=== PATIENT | female | born 1925 | race Caucasian/White ===

== ENCOUNTER → 2017-02-24 12:43 | Emergency (ER) | payer MEDICARE, OTHER ==
[2017-02-24 14:16] VITALS: BP 134/62
--- NOTE | 2017-02-24 16:00 | ED ---
Christopher Gibson Julia, scribed for Roni Francis MD on 02/24/17 at 1431 . Headache - HPI Summary HPI Summary: This patient is a 89 year old F BIBA to [facility] accompanied by with a chief complaint of headache occurring this morning with spontaneously resolution. Patient denies difficulty walking, talking, or changes in balance. - History Of Current Complaint Chief Complaint: EDDizziness Stated Complaint: HEADACHE Time Seen by Provider: 02/24/17 12:59 Hx Obtained From: Patient Onset/Duration: Resolved - Allergies/Home Medications Allergies/Adverse Reactions: Allergies Allergy/AdvReac Type Severity Reaction Status Date / Time Sulfa Antibiotics Allergy Intermediate Rash Verified 04/26/16 09:05 PMH/Surg Hx/FS Hx/Imm Hx Endocrine/Hematology History: Denies: Hx Diabetes Cardiovascular History: Denies: Hx Hypertension, Hx Pacemaker/ICD GI History: Denies: Other GI Disorders Musculoskeletal History: Reports: Hx Osteoporosis Sensory History: Reports: Hx Contacts or Glasses - GLASSES, Hx Hearing Aid Opthamlomology History: Reports: Hx Contacts or Glasses - GLASSES Neurological History: Denies: Other Neuro Impairments/Disorders Psychiatric History: Denies: Hx Panic Disorder - Surgical History Surgery Procedure, Year, and Place: [place] [place] [place] RIGHT LEG FRACTURE-METAL PLATE [id number]. RIGHT WRIST CARPAL TUNNEL 12/01 Hx Anesthesia Reactions: No Infectious Disease History: No Infectious Disease History: Denies: History Other Infectious Disease, Traveled Outside the [place] in Last 30 Days - Social History Alcohol Use: Rare Alcohol Amount: ONE DRINK A MONTH Hx Substance Use: No Substance Use Type: Reports: None Hx Tobacco Use: No Smoking Status (MU): Never Smoked Tobacco Review of Systems Negative: Fever Neurological: Negative - difficulty walking, talking, or balancing Positive: Headache All Other Systems Reviewed And Are Negative: Yes Physical Exam - Summary Physical Exam Summary: Appearance: The patient is well-nourished in no acute distress and in no acute pain. Skin: The skin is warm and dry and skin color reflects adequate perfusion. HEENT: The head is normocephalic and atraumatic. The pupils are equal and reactive. The conjunctivae are clear and without drainage. Nares are patent and without drainage. Mouth reveals moist mucous membranes and the throat is without erythema and exudate. The external ears are intact. The ear canals are patent and without drainage. The tympanic membranes are intact. Neck: the neck is supple with full range of motion and non-tender. There are no carotid bruits. There is no neck vein distension. Respiratory: Chest is non-tender. Lungs are clear to auscultation and breath sounds are symmetrical and equal. Cardiovascular: Heart is regular rate and rhythm. There is no murmur or rub auscultated. There is no peripheral edema and pulses are symmetrical and equal. Abdomen: The abdomen is soft and non-tender. There are normal bowel sounds heard in all four quadrants and there is no organomegaly palpated. Musculoskeletal: There is no back tenderness noted. Extremities are non-tender with full range of motion. There is good capillary refill. There is no peripheral edema or calf tenderness elicited. Neurological: Patient is alert and oriented to person, place and time. The patient has symmetrical motor strength in all four extremities. Cranial nerves are grossly intact. Deep tendon reflexes are symmetrical and equal in all four extremities. Psychiatric: The patient has an appropriate affect and does not exhibit any anxiety or depression. Triage Information Reviewed: Yes Vital Signs On Initial Exam: Initial Vitals Temp Pulse Resp BP Pulse Ox 98.1 F 68 18 156/103 95 02/24/17 13:05 02/24/17 13:05 02/24/17 13:05 02/24/17 13:05 02/24/17 13:05 Vital Signs Reviewed: Yes - [place] Coma Scale Coma Scale Total: 15 Diagnostics - Vital Signs Vital Signs Temp Pulse Resp BP Pulse Ox 02/24/17 13:05 98.1 F 68 18 156/103 95 - Laboratory Lab Statement: Any lab studies that have been ordered have been reviewed, and results considered in the medical decision making process. Headache Course/Dx - Course Course Of Treatment: Ms. Rendon C/O'd a ARTHUR at home and in the EMS but denied it or any other unusual symptoms on my evaluation. Neuro was grossly intact without focality and I D/C'd her back to home. - Diagnoses Provider Diagnoses: Headache Discharge - Discharge Plan Condition: Stable Disposition: HOME Patient Education Materials: General Headache (ED) Referrals: Celso Scales MD [Primary Care Provider] - The documentation as recorded by the Christopher ramirez Julia accurately reflects the service I personally performed and the decisions made by , Roni Francis MD.
== END | disposition home or self-care (01) ==
LOC: ED 12:43
DX: R51 Headache (principal); Z88.2 Allergy status to sulfonamides
CPT/HCPCS: 99282

== ENCOUNTER 2017-02-27 11:39 | Emergency (ER) | payer MEDICARE, OTHER ==
[2017-02-27 12:44] LABS: ABS Basophils 0 10^3/ul (0-0.2); ABS Eosinophils 0 10^3/ul (0-0.6); ABS Lymphocytes 1.2 10^3/ul (1.0-4.8); ABS Monocytes 0.5 10^3/ul (0-0.8); ABS Neutrophils 4.5 10^3/ul (1.5-7.7); ABS Nucleated RBC 0 10^3/ul; Eosinophil % 0.7 % (0-6); Hematocrit 38 % (35-47); Hemoglobin 12.6 g/dl (12.0-16.0); Lymphocyte % 19.2 % (25-47); Mean Corpuscular HGB Conc 34 g/dl (31-36); Mean Corpuscular Hemoglobin 31 pg (27-31); Mean Corpuscular Volume 93 fL (80-97); Mean Platelet Volume 7 um3 (7.4-10.4); Nucleated Red Blood Cells % 0; Platelet Count 237 10^3/ul (150-450); Red Blood Count 4.06 10^6/ul (4.0-5.4); Red Cell Distribution Width 13 % (10.5-15); White Blood Count 6.2 10^3/ul (3.5-10.8)
[2017-02-27 12:53] LABS: INR 0.89 (0.77-1.02)
--- NOTE | 2017-02-27 12:56 | RAD ---
INDICATION: Dizziness COMPARISON: None. TECHNIQUE: Contiguous axial sections of the brain were obtained from the skull base to the vertex without contrast. FINDINGS: The ventricles, cisterns and sulci mild symmetrical involutional changes. There is mild periventricular and subcortical white matter hypoattenuation most consistent with mild chronic microvascular disease. At the right frontal lobe there is a 4 mm hypoattenuating focus in the cortex just lateral to the falx cerebra I which could represent an age indeterminant focal infarction. Otherwise the trimble-white matter differentiation is adequately maintained and there is no sulcal effacement. No significant focal abnormality or mass effect is present. There is no evidence for intracranial hemorrhage. No significant focal osseous abnormality is present. The visualized portion of the paranasal sinuses appear clear. The mastoid air cells are well aerated bilaterally. IMPRESSION: CT findings are compatible with chronic involutional changes, microvascular disease as well as an age indeterminant focal infarction involving the right frontal cortex. If the patient is exhibiting focal neurologic defects further characterization can be made with MRI of the brain.
[2017-02-27 12:59] LABS: EGFR Non-African American 45.8 (>60)
--- NOTE | 2017-02-27 13:05 | RAD ---
INDICATION: Chest pain. COMPARISON: There are no prior studies available for comparison. TECHNIQUE: A portable view of the chest was obtained. FINDINGS: The heart is mildly enlarged. The lungs are underinflated and clear. IMPRESSION: MILD CARDIOMEGALY.
[2017-02-27 15:05] LABS: Urine Appearance Cloudy; Urine Blood Negative (Negative); Urine Color Amber; Urine Ketones Negative (Negative); Urine Protein 1+(30 mg/dL) (Negative); Urine Specific Gravity 1.021 (1.010-1.030); Urine Urobilinogen Negative (Negative)
--- NOTE | 2017-02-27 16:30 | ED ---
Alber Gibson Angela, scribed for Himanshu Moran MD on 02/27/17 at 1220 . Dizziness - HPI Summary HPI Summary: This pt is a 89 y/o female, accompanied by her , presenting to [facility] [place] c/o dizziness and chest pain today. Pt reports that her dizziness began first this morning. She states her dizziness has now resolved. She is unable to remember the time of onset. Per , pt's chest pain only lasted about 30 minutes, and currently denies any pain. She describes it as non-radiating and mid sternal. Pt denies nausea, vomiting, diaphoresis. She denies pain or discomfort with deep breaths. Pt states she was in the ED 3 days ago for the same symptoms. She denies any PMHx. Denies any history of blood clots. Pt states she takes a memory pill. Additionally notes her memory "is not too good." - History Of Current Complaint Chief Complaint: EDDizziness Stated Complaint: LIGHT HEADED Hx Obtained From: Patient Onset/Duration: Resolved Timing: Minutes Character: Dizzy Aggravating Factor(s): Nothing Alleviating Factor(s): Nothing Associated Signs And Symptoms: Negative: Nausea, Vomiting, Diarrhea, Diaphoresis - Allergies/Home Medications Allergies/Adverse Reactions: Allergies Allergy/AdvReac Type Severity Reaction Status Date / Time Sulfa Antibiotics Allergy Intermediate Rash Verified 04/26/16 09:05 Home Medications: Home Medications Donepezil TAB* [Aricept 5 MG TAB*] 10 mg PO DAILY 02/27/17 [History Confirmed ] Memantine XR CAP* [Namenda XR CAP*] 28 mg PO DAILY 02/27/17 [History Confirmed 02/27/17] PMH/Surg Hx/FS Hx/Imm Hx Endocrine/Hematology History: Denies: Hx Diabetes Cardiovascular History: Denies: Hx Hypertension, Hx Pacemaker/ICD GI History: Denies: Other GI Disorders Musculoskeletal History: Reports: Hx Osteoporosis Sensory History: Reports: Hx Contacts or Glasses - GLASSES, Hx Hearing Aid Opthamlomology History: Reports: Hx Contacts or Glasses - GLASSES Neurological History: Denies: Other Neuro Impairments/Disorders Psychiatric History: Denies: Hx Panic Disorder - Surgical History Surgery Procedure, Year, and Place: HERNIA REPAIR[place] [place] TUBAL LIGATION[place] [place]. RIGHT LEG FRACTURE-METAL PLATE [id number]. RIGHT WRIST CARPAL TUNNEL 6/ 10/14 Hx Anesthesia Reactions: No - Immunization History Date of Influenza Vaccine: 10/2016 Immunizations Up to Date: Yes Infectious Disease History: Yes Infectious Disease History: Denies: History Other Infectious Disease, Traveled Outside the [place] in Last 30 Days - Family History Known Family History: Negative: Cardiac Disease, Diabetes, Other - [place] - Social History Alcohol Use: Rare Alcohol Amount: ONE DRINK A MONTH Hx Substance Use: No Substance Use Type: Reports: None Hx Tobacco Use: No Smoking Status (MU): Never Smoked Tobacco Review of Systems Negative: Fever, Chills, Skin Diaphoresis Positive: Chest Pain - now resolved Negative: Vomiting, Diarrhea, Nausea Neurological: Other - dizziness, now resolved. All Other Systems Reviewed And Are Negative: Yes Physical Exam - Summary Physical Exam Summary: Appearance: Well-appearing, Well-nourished Skin: Warm Eyes: Normal ENT: Normal Neck: Supple, nontender Respiratory: Clear to auscultation bilaterally. Cardiovascular: 2/6 systolic murmur. Abdomen: Soft, nontender Bowel: Present Musculoskeletal: Normal, Strength/ROM Intact Neurological: Normal, alert and appropriate. Pt is answering questions appropriately. Normal strength and sensation of UE and LE bilaterally. Normal distal pulses in radial and pedal areas bilaterally. Psychiatric: Normal Triage Information Reviewed: Yes Vital Signs On Initial Exam: Initial Vitals Temp Pulse Resp BP Pulse Ox 97.8 F 61 15 122/69 97 02/27/17 12:03 02/27/17 12:03 02/27/17 12:03 02/27/17 12:03 02/27/17 12:03 Vital Signs Reviewed: Yes - [place] Coma Scale Coma Scale Total: 15 Diagnostics - Vital Signs Vital Signs Temp Pulse Resp BP Pulse Ox 02/27/17 12:03 97.8 F 61 15 122/69 97 - Laboratory Lab Results: Lab Results 02/27/17 02/27/17 02/27/17 Range/Units 12:35 12:35 12:35 WBC 6.2 (3.5-10.8) 10^3/ul RBC 4.06 (4.0-5.4) 10^6/ul Hgb 12.6 (12.0-16.0) g/dl Hct 38 (35-47) % MCV 93 (80-97) fL MCH 31 (27-31) pg MCHC 34 (31-36) g/dl RDW 13 (10.5-15) % Plt Count 237 (150-450) 10^3/ul MPV 7 L (7.4-10.4) um3 Neut % (Auto) 72.1 (38-83) % Lymph % (Auto) 19.2 L (25-47) % Cecil % (Auto) 7.4 (1-9) % Eos % (Auto) 0.7 (0-6) % Baso % (Auto) 0.6 (0-2) % Absolute Neuts (auto) 4.5 (1.5-7.7) 10^3/ul Absolute Lymphs (auto) 1.2 (1.0-4.8) 10^3/ul Absolute Monos (auto) 0.5 (0-0.8) 10^3/ul Absolute Eos (auto) 0 (0-0.6) 10^3/ul Absolute Basos (auto) 0 (0-0.2) 10^3/ul Absolute Nucleated RBC 0 10^3/ul Nucleated RBC % 0 INR (Anticoag Therapy) 0.89 (0.77-1.02) APTT 29.4 (26.0-36.3) seconds Sodium 138 (133-145) mmol/L Potassium 4.0 (3.5-5.0) mmol/L Chloride 103 (101-111) mmol/L Carbon Dioxide 27 (22-32) mmol/L Anion Gap 8 (2-11) mmol/L BUN 20 (6-24) mg/dL Creatinine 1.12 H (0.51-0.95) mg/dL Est GFR ( Amer) 58.9 (>60) Est GFR (Non-Af Amer) 45.8 (>60) BUN/Creatinine Ratio 17.9 (8-20) Glucose 114 H (70-100) mg/dL Calcium 9.5 (8.6-10.3) mg/dL Magnesium 2.5 (1.9-2.7) mg/dL Total Bilirubin 0.40 (0.2-1.0) mg/dL AST 19 (13-39) U/L ALT 17 (7-52) U/L Alkaline Phosphatase 48 (34-104) U/L Troponin I 0.01 (<0.04) ng/mL Total Protein 6.9 (6.4-8.9) g/dL Albumin 3.7 (3.2-5.2) g/dL Globulin 3.2 (2-4) g/dL Albumin/Globulin Ratio 1.2 (1-3) TSH 0.61 (0.34-5.60) mcIU/mL Urine Color Urine Appearance Urine pH (5-9) Ur Specific [place] (1.010-1.030) Urine Protein (Negative) Urine Ketones (Negative) Urine Blood (Negative) Urine Nitrate (Negative) Urine Bilirubin (Negative) Urine Urobilinogen (Negative) Ur Leukocyte Esterase (Negative) Urine WBC (Auto) (Absent) Urine RBC (Auto) (Absent) Ur Squamous Epith Cells (Absent) Urine Bacteria (Absent) Urine Glucose (Negative) Urine Ascorbic Acid (Negative) 02/27/17 02/27/17 Range/Units 14:57 15:19 WBC (3.5-10.8) 10^3/ul RBC (4.0-5.4) 10^6/ul Hgb (12.0-16.0) g/dl Hct (35-47) % MCV (80-97) fL MCH (27-31) pg MCHC (31-36) g/dl RDW (10.5-15) % Plt Count (150-450) 10^3/ul MPV (7.4-10.4) um3 Neut % (Auto) (38-83) % Lymph % (Auto) (25-47) % Cecil % (Auto) (1-9) % Eos % (Auto) (0-6) % Baso % (Auto) (0-2) % Absolute Neuts (auto) (1.5-7.7) 10^3/ul Absolute Lymphs (auto) (1.0-4.8) 10^3/ul Absolute Monos (auto) (0-0.8) 10^3/ul Absolute Eos (auto) (0-0.6) 10^3/ul Absolute Basos (auto) (0-0.2) 10^3/ul Absolute Nucleated RBC 10^3/ul Nucleated RBC % INR (Anticoag Therapy) (0.77-1.02) APTT (26.0-36.3) seconds Sodium (133-145) mmol/L Potassium (3.5-5.0) mmol/L Chloride (101-111) mmol/L Carbon Dioxide (22-32) mmol/L Anion Gap (2-11) mmol/L BUN (6-24) mg/dL Creatinine (0.51-0.95) mg/dL Est GFR ( Amer) (>60) Est GFR (Non-Af Amer) (>60) BUN/Creatinine Ratio (8-20) Glucose (70-100) mg/dL Calcium (8.6-10.3) mg/dL Magnesium (1.9-2.7) mg/dL Total Bilirubin (0.2-1.0) mg/dL AST (13-39) U/L ALT (7-52) U/L Alkaline Phosphatase (34-104) U/L Troponin I 0.01 (<0.04) ng/mL Total Protein (6.4-8.9) g/dL Albumin (3.2-5.2) g/dL Globulin (2-4) g/dL Albumin/Globulin Ratio (1-3) TSH (0.34-5.60) mcIU/mL Urine Color [place] Urine Appearance Cloudy Urine pH 5.0 (5-9) Ur Specific [place] 1.021 (1.010-1.030) Urine Protein 1+(30 mg/dl) H (Negative) Urine Ketones Negative (Negative) Urine Blood Negative (Negative) Urine Nitrate Negative (Negative) Urine Bilirubin Negative (Negative) Urine Urobilinogen Negative (Negative) Ur Leukocyte Esterase Trace H (Negative) Urine WBC (Auto) Trace(0-5/hpf) (Absent) Urine RBC (Auto) Trace(0-2/hpf) (Absent) Ur Squamous Epith Cells Present H (Absent) Urine Bacteria Absent (Absent) Urine Glucose Negative (Negative) Urine Ascorbic Acid * H (Negative) Result Diagrams: 02/27/17 12:35 02/27/17 12:35 Lab Statement: Any lab studies that have been ordered have been reviewed, and results considered in the medical decision making process. - Radiology chest XR Xray Interpretation: Positive (See Comments) - IMPRESSION: Mild cardiomegaly. Dr. Moran has reviewed this radiology report. Radiology Interpretation Completed By: Radiologist - CT Brain CT CT Interpretation: No Acute Changes - IMPRESSION: CT findings are compatible with chronic involutional changes, microvascular disease as well as an age indeterminant focal infarction involving the right frontal cortex. If the patient is exhibiting focal neurologic defets further characterization can be made with MRI of the brain. Dr. Moran has reviewed this radiology report. CT Interpretation Completed By: Radiologist - EKG 12:23 Cardiac Rate: Bradycardia EKG Rhythm: Sinus Bradycardia - at 57 bpm EKG Interpretation: Left ventricular hypertrophy. Dizzy Course/Dx - Course Assessment/Plan: no acute abd on imaging, labs WNL, pt ambulating normally, chest pain free, instructedt o fu wtih pmd. pt and family agrees to and understands dc isntrucitns. - Diagnoses Provider Diagnoses: Chest pain Discharge - Discharge Plan Condition: Improved Disposition: HOME Patient Education Materials: Chest Pain (ED) Referrals: Celso Scales MD [Primary Care Provider] - Navdeep Sellesr MD [Medical Doctor] - Additional Instructions: PLEASE MAKE AN APPOINTMENT FIRST THING IN THE MORNING TO BE SEEN BY YOUR HOT DIE PICKER WITHIN 1 WEEK PLEASE RETURN IMMEDIATELY TO THE ER IF YOU HAVE ANY WORSENING OR CONCERNING SYMPTOMS PLEASE MAKE AN APPOINTMENT TO BE SEEN BY YOUR PRIMARY CARE DOCTOR WITHIN 1 WEEK The documentation as recorded by the Alber ramirez Angela accurately reflects the service I personally performed and the decisions made by me, Himanshu Moran MD.
[2017-02-28 14:17] VITALS: BP 112/68
== END 2017-02-28 14:11 | disposition home or self-care (01) ==
LOC: ED 11:39
DX: R07.9 Chest pain, unspecified (principal); R42 Dizziness and giddiness
CPT/HCPCS: 36415; 70450; 71045; 80053; 81003; 81015; 83735; 84443; 84484; 85025; 85610; 85730; 87086; 93005; 99282

== ENCOUNTER → 2017-03-03 12:00 | Emergency (ER) | payer MEDICARE, OTHER ==
[~2017-03-03 12:00] MED LIST: Acetaminophen TAB* 325 MG PO ONE
--- OUTSIDE RECORDS SUMMARY | 2017-03-03 12:11 | XMS REPORT ---
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 Celso Scales III, MD Primary Care Physician Unavailable Payers Type Date Identification Numbers Payment Provider Subscriber Medicare Primary Effective: Policy Number: Medicare Chanell Rendon 1990 [id number] PayID: [id number] [address] [place] [address] [employer] Policy Number: [id number] [employer] Chanell Rendon PayID: [id number] [address] [place] [address] Advance Directives Type Date Description Status Comment Other Directive 11/19/2016 Health Care Proxy Current and Verified Other Directive 04/23/2016 Health Care Proxy Current and Verified Problems Date Description Provider Status Onset: 12/18/2010 Benign essential hypertension Celso Scales M.D. Active Onset: 12/18/2010 Pure hypercholesterolemia Celso Scales M.D. Active Onset: 12/18/2010 Osteochondropathy Celso Scales M.D. Active Onset: 04/20/2016 Disorder of bone Celso Scales M.D. Active Social History Type Date Description Comments Cigarette Use Never Smoked Cigarettes ETOH Use 09/04/2012 Denies alcohol use Smoking Patient has never smoked Exercise Type/Frequency Exercises regularly Allergies, Adverse Reactions, Alerts Date Description Reaction Status Severity Comments 10/31/2009 Sulfa Antibiotics itchy rash active 09/26/2006 NKDA inactive Medications Medication Date Status Form Strength Qnty SIG Indications Ordering Provider Donepezil 06/29/ Active Tablets 10mg 90tab 1 by mouth G31.84 Celso TELLEZ 2017 Dispers s every day Chucky Scales Multi-Vitami 09/26/ Active Tablets 1 PO qd Navdeep Sellers M.D. Calcium / Active Liquids 1 oz a day Loyda 0000 III, Celso Weaver MD Vitamins / Active 1 oz a day Unknown 0000 Vitamin D / Active Capsules 1000Unit 1 po qd Unknown High Potency 0000 Lutein / Active Capsules 20mg po qd Unknown 0000 Namenda XR 01/16/ Hx Caps ER 28mg 90cap 1 by mouth G31.84 Celso Weaver 2017 - 24HR s every day Loyda, 02/28/ M.D. 2018 Namenda XR 12/21/ Hx Caps ER 7&14&a 1caps 1 tab daily G31.84 Celso Weaver Titration 2017 - 24HR mp;21& per Loyda, Pack 01/16/ 28mg directions M.D. 2017 Donepezil 06/15/ Hx Tablets 5mg 30tab 1 by mouth G31.84 Celso Weaver HCL 2016 - s every day Loyda, 06/29/ M.D. 2016 Cod Liver 03/12/ Hx Oil 1 tbsp Daily Celso Weaver Oil 2012 - Loyda, 09/21/ M.D. 2014 Triamterene/ 01/17/ Hx Capsules 37.5-25mg 30cap Take 1 Celso Weaver Hydrochlorot 2010 - s Capsule Daily Loyda, hiazide 10/22/ M.D. 2015 Septra DS 10/21/ Hx Tablets 800-160mg 20tab 1 po bid Celso Weaver 2009 s Loyda, M.D. 2010 Vitamin D 01/17/ Hx Capsules 400Unit 60cap 1 po bid Celso Weaver 2008 - s Loyda, 12/18/ MTomas 2010 Asa 07/16/ Hx 81mg 90uni 1 PO qod Celso Weaver 2007 - ts Loyda, 03/09/ MTomas 2013 Dyazide 06/11/ Hx Capsules 37.5-25mg 90cap 1 po qd Celso Weaver 2007 - s Loyda, 12/18/ MTomas 2010 Selenium 09/26/ Hx Tablets 25mcg Navdeep 2006 [place] G[place]ell 12/18/ Verito 2010 Chucky Triamterene/ /00/ Hx Capsules 90cap 1 po qd Unknown Hydrochlorot - s hiazide 2010 Minerals / Hx Liquids 1 oz a day Unknown - 2010 [place]-3-6-9 / Hx Capsules 1 po qd Unknown 0000 - 2014 Glucogel / Hx 4 po qd Unknown - 2016 Selenium / Hx Tablets 2 po qd Unknown - 2016 Fiber Powder / Hx Powder 2 scoops per Unknown 0000 - day 2012 Magnesium / Hx Powder 1 tsp in am Unknown 0000 - w/hot water 04/19/ 2016 constipation Prevagen / Hx Capsules 10mg Unknown - 2016 Influenza,Un 00/ Active Injection Unknown specified 0000 Influenza,Un 00/ Active Injection Unknown specified 0000 Medications Administered in Office Medication Date Status Form Strength Qnty SIG Indications Ordering Provider Influenza,Unsp Administered Injection Unknown ecified 017 Immunizations CPT Code Status Date Vaccine Lot # [id number] Given 09/30/2016 Influenza Virus Vaccine, Quadrivalent, Split, Preservative Free [id number] Given 04/20/2016 Tdap - Tetanus/Diptheria/Acellular Pertussis [id number] 47066 Given 09/21/2014 Pneumococcal Conjugate Vaccine 13 Valent For [id number] Intramuscular Use 45217 Given 11/09/2013 Fluzone High Dose [id number] Given 12/12/2012 Fluvirin Im 3Yrs And Older [id number] Given 11/23/2011 Fluzone Vaccine [id number] Given 12/18/2010 Fluzone Vaccine [id number] Given 01/03/2010 Influenza Virus 3Yrs & Over [id number] 02675 Given 01/27/2007 Tetanus And Diptheria (Td) For Adult Use Preservative Free [id number] Given 01/27/2007 Tetanus And Diptheria (Td) For Adult Use Preservative Free 95359 Given 01/27/2007 Tetanus And Diptheria (Td) For Adult Use Preservative Free 95469 Given Unknown Pneumonia Vaccine Vital Signs Date Vital Result Comment 02/28/2017 Weight 129.00 lb Heart Rate 76 /min BP Systolic Sitting 150 mmHg BP Diastolic Sitting 85 mmHg Body Temperature 98.8 F O2 % BldC Oximetry 97 % 12/21/2016 Height 60 inches 5'0" Weight 134.00 lb Heart Rate 63 /min BP Systolic 120 mmHg BP Diastolic 70 mmHg Body Temperature 97.9 F O2 % BldC Oximetry 94 % BMI (Body Mass Index) 26.2 kg/m2 06/15/2016 Weight 135.00 lb Heart Rate 60 /min BP Systolic Sitting 124 mmHg BP Diastolic Sitting 70 mmHg Respiratory Rate 15 /min O2 % BldC Oximetry 97 % 05/21/2016 Weight 135.00 lb Heart Rate 66 /min BP Systolic Sitting 128 mmHg BP Diastolic Sitting 84 mmHg Respiratory Rate 15 /min Body Temperature 98.0 F O2 % BldC Oximetry 98 % 04/20/2016 Height 60 inches 5'0" Weight 133.00 lb Heart Rate 68 /min BP Systolic 120 mmHg BP Diastolic 80 mmHg Body Temperature 97.8 F O2 % BldC Oximetry 98 % BMI (Body Mass Index) 26.0 kg/m2 10/29/2014 Height 60 inches 5'0" Weight 132.00 lb Heart Rate 76 /min BP Systolic Sitting 140 mmHg BP Diastolic Sitting 90 mmHg Body Temperature 98.0 F O2 % BldC Oximetry 97 % BMI (Body Mass Index) 25.8 kg/m2 10/22/2014 Weight 132.00 lb Heart Rate 64 /min BP Systolic Sitting 132 mmHg BP Diastolic Sitting 82 mmHg Body Temperature 98.6 F O2 % BldC Oximetry 97 % 09/21/2014 Weight 132.00 lb Heart Rate 94 /min BP Systolic Sitting 128 mmHg BP Diastolic Sitting 82 mmHg Body Temperature 98.7 F O2 % BldC Oximetry 98 % 09/07/2013 Weight 128.50 lb Heart Rate 56 /min BP Systolic Sitting 142 mmHg BP Diastolic Sitting 78 mmHg Body Temperature 98.3 F 08/06/2013 Height 60 inches 5'0" Weight 129.00 lb Body Temperature 98.4 F BMI (Body Mass Index) 25.2 kg/m2 07/09/2013 Height 60 inches 5'0" Weight 130.00 lb Heart Rate 65 /min BP Systolic 164 mmHg BP Diastolic 93 mmHg BMI (Body Mass Index) 25.4 kg/m2 03/09/2013 Height 59.5 inches 4'11.50" Weight 132.00 lb Heart Rate 64 /min BP Systolic Sitting 127 mmHg home BP; 140/76 today BP Diastolic Sitting 62 mmHg home BP; 140/76 today BMI (Body Mass Index) 26.2 kg/m2 09/04/2012 Weight 129.50 lb Heart Rate 68 /min BP Systolic Sitting 142 mmHg BP Diastolic Sitting 76 mmHg 07/11/2012 Height 59.5 inches 4'11.50" Weight 130.25 lb Heart Rate 80 /min BP Systolic Sitting 160 mmHg BP Diastolic Sitting 86 mmHg BMI (Body Mass Index) 25.9 kg/m2 03/12/2012 Height 59.5 inches 4'11.50" Weight 133.25 lb Heart Rate 64 /min BP Systolic Sitting 180 mmHg BP Diastolic Sitting 80 mmHg BMI (Body Mass Index) 26.5 kg/m2 02/06/2012 Height 59.5 inches 4'11.50" Weight 134.00 lb Heart Rate 76 /min BP Systolic Sitting 136 mmHg BP Diastolic Sitting 70 mmHg BMI (Body Mass Index) 26.6 kg/m2 12/18/2010 Height 59.50 inches 4'11.50" Weight 130.00 lb Heart Rate 68 /min BP Systolic Sitting 155 mmHg BP Diastolic Sitting 70 mmHg BMI (Body Mass Index) 25.8 kg/m2 01/24/2010 Weight 129.00 lb Heart Rate 61 /min BP Systolic 140 mmHg BP Diastolic 78 mmHg 01/03/2010 Weight 128.00 lb Heart Rate 64 /min BP Systolic Sitting 158 mmHg BP Diastolic Sitting 82 mmHg 11/01/2009 Weight 126.00 lb Heart Rate 66 /min BP Systolic Sitting 140 mmHg BP Diastolic Sitting 82 mmHg 10/31/2009 Weight 127.00 lb Heart Rate 64 /min BP Systolic Sitting 144 mmHg BP Diastolic Sitting 80 mmHg 10/21/2009 Body Temperature 98.6 F 06/29/2009 Height 60 inches 5'0" Weight 129.00 lb Heart Rate 60 /min BP Systolic 156 mmHg BP Diastolic 70 mmHg BMI (Body Mass Index) 25.2 kg/m2 01/17/2009 Height 60 inches 5'0" Weight 127.00 lb Heart Rate 60 /min BP Systolic Sitting 144 mmHg BP Diastolic Sitting 62 mmHg BMI (Body Mass Index) 24.8 kg/m2 07/19/2008 Height 60 inches 5'0" Weight 129.00 lb Heart Rate 60 /min BP Systolic Sitting 16 mmHg BP Diastolic Sitting 76 mmHg BMI (Body Mass Index) 25.2 kg/m2 07/17/2007 Height 60 inches 5'0" Weight 129.50 lb lost 5# Heart Rate 56 /min BP Systolic Sitting 130 mmHg BP Diastolic Sitting 74 mmHg BMI (Body Mass Index) 25.3 kg/m2 06/12/2007 Height 60 inches 5'0" Heart Rate 60 /min BP Systolic Sitting 174 mmHg BP Diastolic Sitting 92 mmHg 02/03/2007 Height 60 inches 5'0" Body Temperature 98.6 F 02/03/2007 Height 60 inches 5'0" BP Systolic Sitting 150 mmHg BP Diastolic Sitting 80 mmHg 09/30/2006 Height 60 inches 5'0" Weight 134.00 lb Heart Rate 64 /min BP Systolic Sitting 168 mmHg With PT.'S Cuff:172/106 Here, 140/76 At HM BP Diastolic Sitting 90 mmHg With PT.'S Cuff:172/106 Here, 140/76 At HM BMI (Body Mass Index) 26.2 kg/m2 Results Test Date Test Result H/L Range Note Laboratory test finding 02/27/2017 Troponin-I (TnI) 0.01 ng/mL <0.04 Urinalysis Profile 02/27/2017 Urine Color [place] Urine Appearance Cloudy Urine Specific [place] 1.021 1.010-1.030 Urine pH 5.0 5-9 Urine Urobilinogen Negative Negative Urine Ketones Negative Negative Urine Protein 1+(30 mg/dL) Negative Urine Leukocytes Trace Negative Urine Blood Negative Negative * * Negative 1 Urine Nitrite Negative Negative Urine Bilirubin Negative Negative Urine Glucose Negative Negative Urine White Blood Cell Trace(0-5/hpf) Absent Urine Red Blood Cell Trace(0-2/hpf) Absent Urine Bacteria Absent Absent Urine Squamous Epithelial Cell Present Absent CBC Auto Diff 02/27/2017 White Blood Count 6.2 10^3/uL 3.5-10.8 Red Blood Count 4.06 10^6/uL 4.0-5.4 Hemoglobin 12.6 g/dL 12.0-16.0 Hematocrit 38 % 35-47 Mean Corpuscular Volume 93 fL 80-97 Mean Corpuscular Hemoglobin 31 pg 27-31 Mean Corpuscular HGB Conc 34 g/dL 31-36 Red Cell Distribution Width 13 % 10.5-15 Platelet Count 237 10^3/uL 150-450 Mean Platelet Volume 7 um3 Low 7.4-10.4 Abs Neutrophils 4.5 10^3/uL 1.5-7.7 Abs Lymphocytes 1.2 10^3/uL 1.0-4.8 Abs Monocytes 0.5 10^3/uL 0-0.8 Abs Eosinophils 0 10^3/uL 0-0.6 Abs Basophils 0 10^3/uL 0-0.2 Abs Nucleated RBC 0 10^3/uL Granulocyte % 72.1 % 38-83 Lymphocyte % 19.2 % Low 25-47 Monocyte % 7.4 % 1-9 Eosinophil % 0.7 % 0-6 Basophil % 0.6 % 0-2 Nucleated Red Blood Cells % 0 Inr/Protime 02/27/2017 Inr 0.89 0.77-1.02 Laboratory test finding 02/27/2017 Partial Thrombo Time 29.4 seconds 26.0 -36.3 PTT Comp Metabolic Panel 02/27/2017 Sodium 138 mmol/L 133-145 Potassium 4.0 mmol/L 3.5-5.0 Chloride 103 mmol/L 101-111 Co2 Carbon Dioxide 27 mmol/L 22-32 Anion Gap 8 mmol/L 2-11 Glucose 114 mg/dL High 70-100 Blood Urea Nitrogen 20 mg/dL 6-24 Creatinine 1.12 mg/dL High 0.51-0.95 BUN/Creatinine Ratio 17.9 8-20 Calcium 9.5 mg/dL 8.6-10.3 Total Protein 6.9 g/dL 6.4-8.9 Albumin 3.7 g/dL 3.2-5.2 Globulin 3.2 g/dL 2-4 Albumin/Globulin Ratio 1.2 1-3 Total Bilirubin 0.40 mg/dL 0.2-1.0 Alkaline Phosphatase 48 U/L 34-104 Alt 17 U/L 7-52 Ast 19 U/L 13-39 Egfr Non- 45.8 >60 Egfr 58.9 >60 2 Laboratory test finding 02/27/2017 Magnesium 2.5 mg/dL 1.9-2.7 Troponin-I (TnI) 0.01 ng/mL <0.04 TSH (Thyroid Stim Horm) 0.61 mcIU/mL 0.34-5.60 Laboratory test finding 04/20/2016 Vitamin D Total 25(Oh) 50.5 ng/mL High 30-50 CBC Auto Diff 04/20/2016 White Blood Count 7.9 10^3/uL 3.5-10.8 Red Blood Count 4.58 10^6/uL 4.0-5.4 Hemoglobin 13.9 g/dL 12.0-16.0 Hematocrit 42 % 35-47 Mean Corpuscular Volume 92 fL 80-97 Mean Corpuscular Hemoglobin 30 pg 27-31 Mean Corpuscular HGB Conc 33 g/dL 31-36 Red Cell Distribution Width 14 % 10.5-15 Platelet Count 234 10^3/uL 150-450 Mean Platelet Volume 8 um3 7.4-10.4 Abs Neutrophils 5.0 10^3/uL 1.5-7.7 Abs Lymphocytes 2.2 10^3/uL 1.0-4.8 Abs Monocytes 0.5 10^3/uL 0-0.8 Abs Eosinophils 0.1 10^3/uL 0-0.6 Abs Basophils 0.1 10^3/uL 0-0.2 Abs Nucleated RBC 0 10^3/uL Granulocyte % 62.9 % 38-83 Lymphocyte % 27.9 % 25-47 Monocyte % 6.1 % 1-9 Eosinophil % 1.8 % 0-6 Basophil % 1.3 % 0-2 Nucleated Red Blood Cells % 0 Vitamin B12 And Folate Serum 04/20/2016 Vitamin B12 510 pg/mL 180-914 3 Folic Acid (Folate) > 20.00 ng/mL >3.99 Laboratory test finding 04/20/2016 TSH (Thyroid Stim Horm) 0.54 mcIU/mL 0.34-5.60 Lipid Profile 03/24/2016 Triglycerides 213 mg/dL 4 (Trig/Chol/HDL) Cholesterol 253 mg/dL 5 HDL Cholesterol 52.3 mg/dL 6 LDL Cholesterol 158 mg/dL 7 Comp Metabolic Panel 03/24/2016 Sodium 139 mmol/L 133-145 Potassium 4.0 mmol/L 3.5-5.0 Chloride 103 mmol/L 101-111 Co2 Carbon Dioxide 30 mmol/L 22-32 Anion Gap 6 mmol/L 2-11 Glucose 102 mg/dL High 70-100 Blood Urea Nitrogen 23 mg/dL 6-24 Creatinine 0.92 mg/dL 0.51-0.95 BUN/Creatinine Ratio 25.0 High 8-20 Calcium 9.3 mg/dL 8.6-10.3 Total Protein 7.3 g/dL 6.4-8.9 Albumin 4.1 g/dL 3.2-5.2 Globulin 3.2 g/dL 2-4 Albumin/Globulin Ratio 1.3 1-3 Total Bilirubin 0.60 mg/dL 0.2-1.0 Alkaline Phosphatase 49 U/L 34-104 Alt 13 U/L 7-52 Ast 17 U/L 13-39 Egfr Non- 57.6 >60 Egfr 74.1 >60 8 Lipid Profile (Trig/Chol/HDL) 09/16/2014 Triglycerides 228 mg/dL 9, 10 Cholesterol 226 mg/dL 9, 11 HDL Cholesterol 45.5 mg/dL 9, 12 LDL Cholesterol 135 mg/dL 9, 13 Comp Metabolic Panel 09/16/2014 Sodium 140 mmol/L 133-145 9 Potassium 3.9 mmol/L 3.5-5.0 9 Chloride 103 mmol/L 101-111 9 Co2 Carbon Dioxide 30 mmol/L 22-32 9 Anion Gap 7 mmol/L 2-11 9 Glucose 91 mg/dL 70-100 9 Blood Urea Nitrogen 26 mg/dL High 6-24 9 Creatinine 1.11 mg/dL High 0.51-0.95 9 BUN/Creatinine Ratio 23.4 High 8-20 9 Calcium 9.6 mg/dL 8.6-10.3 9 Total Protein 7.2 g/dL 6.4-8.9 9 Albumin 4.0 g/dL 3.2-5.2 9 Globulin 3.2 g/dL 2-4 9 Albumin/Globulin Ratio 1.3 1-3 9 Total Bilirubin 0.50 mg/dL 0.2-1.0 9 Alkaline Phosphatase 46 U/L 34-104 9 Alt 14 U/L 7-52 9 Ast 19 U/L 13-39 9 Egfr Non- 46.6 >60 9 Egfr 59.9 >60 9, 14 Comp Metabolic Panel 06/29/2013 Sodium 140 mmol/L 133-145 15 Potassium 4.1 mmol/L 3.7-5.6 15 Chloride 101 mmol/L 101-111 15 Co2 Carbon Dioxide 32 mmol/L 22-32 15 Anion Gap 7 mmol/L 2-11 15 Glucose 81 mg/dL 70-100 15 Blood Urea Nitrogen 22 mg/dL 6-24 15 Creatinine 1.10 mg/dL High 0.51-0.95 15 BUN/Creatinine Ratio 20.0 8-20 15 Calcium 9.4 mg/dL 8.6-10.3 15 Total Protein 7.0 g/dL 6.4-8.9 15 Albumin 4.1 g/dL 3.2-5.2 15 Globulin 2.9 g/dL 2-4 15 Albumin/Globulin Ratio 1.4 1-3 15 Total Bilirubin 0.60 mg/dL 0.2-1.0 15 Alkaline Phosphatase 45 U/L 34-104 15 Alt 20 U/L 7-52 15 Ast 25 U/L 13-39 15 Egfr Non- 47.2 >60 15 Egfr 60.7 >60 15, 16 Lipid Profile (Trig/Chol/HDL) 06/29/2013 Triglycerides 186 mg/dL 15, 17 Cholesterol 241 mg/dL 15, 18 HDL Cholesterol 49.4 mg/dL 15, 19 LDL Cholesterol 154 mg/dL 15, 20 Comp Metabolic Panel 10/10/2012 Sodium 144 mmol/L 133-145 Potassium 4.4 mmol/L 3.5-5.0 Chloride 105 mmol/L 101-111 Co2 Carbon Dioxide 31.0 mmol/L 22-32 Anion Gap 8.0 mmol/L 2-11 Glucose 80 mg/dL 70-100 Blood Urea Nitrogen 25 mg/dL High 6-24 Creatinine 1.00 mg/dL 0.50-1.40 BUN/Creatinine Ratio 25.0 High 8-20 Calcium 9.6 mg/dL 8.1-9.9 Total Protein 6.8 g/dL 6.2-8.1 Albumin 3.7 g/dL 3.2-5.2 Globulin 3.1 g/dL 2-4 Albumin/Globulin Ratio 1.2 1-3 Total Bilirubin 0.8 mg/dL 0.4-1.5 Alkaline Phosphatase 43 U/L 30-110 Alt 18 U/L 14-54 Ast 20 U/L 12-42 Egfr Non- 52.7 >60 Egfr 67.8 >60 21 Lipid Profile (Trig/Chol/HDL) 01/30/2012 Triglycerides 112 mg/dL 40-200 Cholesterol 227 mg/dL High Less than 200 HDL Cholesterol 52 mg/dL 40-60 22 Cholesterol/HDL Ratio 4.4 Average 1-4.44 LDL Cholesterol 152.6 mg/dL High Less Than 100 23 Comp Metabolic Panel 01/30/2012 Sodium 142 mmol/L 133-145 Potassium 4.5 mmol/L 3.5-5.0 Chloride 104 mmol/L 101-111 Co2 Carbon Dioxide 30.0 mmol/L 22-32 Anion Gap 8.0 mmol/L 2-11 Glucose 94 mg/dL 70-100 Blood Urea Nitrogen 25 mg/dL High 6-24 Creatinine 1.00 mg/dL 0.50-1.40 BUN/Creatinine Ratio 25.0 High 8-20 Calcium 9.6 mg/dL 8.1-9.9 Total Protein 6.8 g/dL 6.2-8.1 Albumin 3.8 g/dL 3.2-5.2 Globulin 3.0 g/dL 2-4 Albumin/Globulin Ratio 1.3 1-3 Total Bilirubin 0.9 mg/dL 0.4-1.5 Alkaline Phosphatase 46 U/L 30-110 Alt 18 U/L 14-54 Ast 24 U/L 12-42 Egfr Non- 52.8 >60 Egfr 67.9 >60 24 Vitamin D, 25 Hydroxy 01/03/2011 25-Hydroxy Vitamin D2 <4.0 ng/mL () 25-Hydroxy Vitamin D3 56 ng/mL () 25-Hydroxy Vitamin D Total 56 ng/mL () 25 DR Scales's Lab Panel 12/20/2010 TSH 0.97 MIU/ML 0.34-5.60 26 Comp Metabolic Panel 12/20/2010 Sodium 141 mmol/L 135-145 26 Potassium 4.0 mmol/L 3.5-5.0 26 Chloride 101 mmol/L 101-111 26 Co2 (Carbon Dioxide) 30.0 mmol/L 22-32 26 Anion Gap 10.0 mmol/L 2-11 26, 27 Glucose 90 mg/dL 70-100 26 BUN 26 mg/dL High 6-24 26 Creatinine 1.0 mg/dL 0.50-1.40 26 One Over Creatinine 1.00 26 BUN/Creatinine Ratio 26.0 High 8-20 26 Calcium 9.1 mg/dL 8.1-9.9 26 Total Protein 6.4 GM/DL 6.2-8.1 26 Albumin 3.8 GM/DL 3.2-5.2 26 Globulin 2.6 GM/DL 2-4 26 Albumin/Globulin Ratio 1.5 1-3 26 Bilirubin Total 0.9 mg/dL 0.4-1.5 26, 28 Alkaline Phosphatase 44 U/L 30-110 26 Alt (SGPT) 20 U/L 14-54 26 Ast (Sgot) 23 U/L 12-42 26 eGFR Non- 53.0 > 60 26 eGFR 68.1 > 60 26, 29 Lipid Profile (Trig/Chol/HDL) 12/20/2010 Triglyceride 131 mg/dL 40-200 26 Cholesterol 230 mg/dL High Less Than 200 26, 30 High Density Lipoprotein 47 mg/dL 40-60 26, 31 Cholesterol/HDL Ratio 4.89 AVERAGE High 1-4.44 26 Low Density Lipoprotein 157 mg/dL High Less Than 100 26, 32 CBC Auto Diff 12/20/2010 White Blood Count 4.8 CUMM 4.8-10.8 26 Red Cell Count 4.01 CUMM Low 4.2-5.4 26 Hemoglobin 12.5 g/dL 12.0-16.0 26 Hematocrit 37 % 35-47 26 Mean Corpuscular Volume 92 um3 79-97 26 Mean Corpuscular Hemoglob 31 pg 27-31 26 Mean Corpuscular HGB Cone 34 g/dL 32-36 26 Redcell Distribution WDTH 13 % 10.5-15 26 Platelet Count 214 CUMM 150-450 26 Mean Platelet Volume 9.0 um3 7.4-10.4 26 Gran % 51.9 % 38-83 26 Lymph % 37.5 % 25-47 26 Mononuclear % 7.3 % 1-9 26 Eosinophil % 2.6 % 0-6 26 Basophil % 0.7 % 0-2 26 Abs Lymphs 1.8 1.0-4.8 26 Abs Mononuclear 0.3 0-0.8 26 Absolute Neutrophil Count 2.5 1.5-7.7 26 Abs Eosinophils 0.1 0-0.6 26 Abs Basophils 0 0-0.2 26 Urinalysis W/Microscopic 10/21/2009 Ua Color YELLOW Yellow Appearance-Urine CLEAR Clear Specific [place]-Ur 1.008 Low 1.010-1.030 Esterase-Urine 3+ Negative Nitrite POSITIVE Negative Mzjybgfbfacy-Lw-ORU NEGATIVE Negative Protein-Urine NEGATIVE Negative PH-Urine 5.5 5-9 Blood-Urine 2+ Negative Ketones-Urine NEGATIVE Negative Bilirubin-Ur NEGATIVE Negative Glucose-Urine NEGATIVE Negative WBC-Urine TNTC 0-5 RBC-Urine 2-5 0-2 Epith Cells-Ur FEW None Bacteria-Urine 2+ None Urine Culture & 10/21/2009 Urine Culture Sensitivi ESCHERICHIA COLI 33 Sensitivi Ursc-1 10/21/2009 Ampicillin 4 Amikacin <=2 Ciprofloxacin <=0.25 Ceftriaxone <=1 Cefazolin <=4 Nitrofurantoin <=16 Gentamicin <=1 Imipenem <=1 Levofloxacin <=0.12 Trimeth-Sulfa <=20 Ceftazidime <=1 Tigecycline <=0.5 Piperacillin/Tazobactam <=4 Comp Metabolic Panel 01/24/2009 Sodium 142 mmol/L 135-145 Potassium 4.5 mmol/L 3.5-5.0 Chloride 105 mmol/L 101-111 Co2 (Carbon Dioxide) 33.0 mmol/L High 22-32 Anion Gap 4.0 mmol/L 2-11 34 Glucose 92 mg/dL 70-100 35 BUN 18 mg/dL 6-24 Creatinine 1.00 mg/dL 0.50-1.40 One Over Creatinine 1.00 BUN/Creatinine Ratio 18.0 8-20 Calcium 9.4 mg/dL 8.1-9.9 36 Total Protein 6.3 GM/DL 6.2-8.1 Albumin 3.7 GM/DL 3.2-5.2 Globulin 2.6 GM/DL 2-4 Albumin/Globulin Ratio 1.4 1-3 Bilirubin Total 0.7 mg/dL 0.4-1.5 37 Alkaline Phosphatase 39 U/L 30-110 Alt (SGPT) 29 U/L 14-54 Ast (Sgot) 29 U/L 12-42 eGFR Non- 56.6 > 60 eGFR 68.4 > 60 38 Lipid Profile (Trig/Chol/HDL) 01/24/2009 Triglyceride 265 mg/dL High 40- 200 Cholesterol 245 mg/dL High Less Than 200 39 High Density Lipoprotein 47 mg/dL 40-60 40 Cholesterol/HDL Ratio 5.21 AVERAGE High 1-4.44 Low Density Lipoprotein 145 mg/dL High Less Than 100 41 CBC With Electronic Diff 01/24/2009 White Blood Count 4.4 CUMM Low 4.8- 10.8 Red Cell Count 3.90 CUMM Low 4.2-5.4 Hemoglobin 12.2 g/dL 12.0-16.0 Hematocrit 37 % 35-47 Mean Corpuscular Volume 95 um3 79-97 Mean Corpuscular Hemoglob 31 pg 27-31 Mean Corpuscular HGB Cone 33 g/dL 32-36 Redcell Distribution WDTH 13 % 10.5-15 Platelet Count 216 CUMM 150-450 Mean Platelet Volume 8.1 um3 7.4-10.4 Gran % 51.7 % 38-83 Lymph % 39.5 % 25-47 Mononuclear % 6.2 % 1-9 Eosinophil % 1.9 % 0-6 Basophil % 0.7 % 0-2 Abs Lymphs 1.7 1.0-4.8 Abs Mononuclear 0.3 0-0.8 Absolute Neutrophil Count 2.3 1.5-7.7 Abs Eosinophils 0.1 0-0.6 Abs Basophils 0 0-0.2 DR Scales's Lab Panel 01/24/2009 TSH 1.15 MIU/ML 0.34-5.60 CBC With Electronic Diff 01/19/2008 White Blood Count 5.6 CUMM 4.8-10.8 42 Red Cell Count 3.92 CUMM Low 4.2-5.4 42 Hemoglobin 12.5 g/dL 12.0-16.0 42 Hematocrit 36 % 35-47 42 Mean Corpuscular Volume 93 um3 79-97 42 Mean Corpuscular Hemoglob 32 pg High 27-31 42 Mean Corpuscular HGB Cone 34 g/dL 32-36 42 Redcell Distribution WDTH 12 % 10.5-15 42 Platelet Count 214 CUMM 150-450 42 Mean Platelet Volume 8.8 um3 7.4-10.4 42 Gran % 51.6 % 38-83 42 Lymph % 39.4 % 25-47 42 Mononuclear % 6.6 % 1-9 42 Eosinophil % 1.7 % 0-6 42 Basophil % 0.7 % 0-2 42 Abs Lymphs 2.2 1.0-4.8 42 Abs Mononuclear 0.4 0-0.8 42 Absolute Neutrophil Count 2.9 1.5-7.7 42 Abs Eosinophils 0.1 0-0.6 42 Abs Basophils 0 0-0.2 42 Comp Metabolic Panel 01/19/2008 Sodium 143 mmol/L 135-145 42 Potassium 4.7 mmol/L 3.5-5.0 42 Chloride 102 mmol/L 101-111 42 Co2 (Carbon Dioxide) 32.0 mmol/L 22-32 42 Anion Gap 9.0 mmol/L 2-11 42, 43 Glucose 96 mg/dL 70-100 42, 44 BUN 20 mg/dL 6-24 42 Creatinine 1.00 mg/dL 0.50-1.40 42 One Over Creatinine 1.00 42 BUN/Creatinine Ratio 20.0 8-20 42 Calcium 9.3 mg/dL 8.1-9.9 42, 45 Total Protein 6.6 GM/DL 6.2-8.1 42 Albumin 3.8 GM/DL 3.2-5.2 42 Globulin 2.8 GM/DL 2-4 42 Albumin/Globulin Ratio 1.4 1-3 42 Bilirubin Total 0.9 mg/dL 0.4-1.5 42 Alkaline Phosphatase 41 U/L 30-110 42 Alt (SGPT) 23 U/L 14-54 42 Ast (Sgot) 25 U/L 12-42 42 Lipid Profile (Trig/Chol/HDL) 01/19/2008 Triglyceride 175 mg/dL 40-200 42 Cholesterol 233 mg/dL High Less Than 200 42, 46 High Density Lipoprotein 48 mg/dL 40-60 42, 47 Cholesterol/HDL Ratio 4.85 AVERAGE High 1-4.44 42 Low Density Lipoprotein 150 mg/dL High Less Than 100 42, 48 Laboratory test finding 01/19/2008 TSH 0.95 MIU/ML 0.34-5.60 42 Basic Metabolic Panel 07/17/2007 Sodium 136 mmol/L 135-145 42 Potassium 4.9 mmol/L 3.5-5.0 42 Chloride 101 mmol/L 101-111 42 Co2 (Carbon Dioxide) 31.0 mmol/L 22-32 42 Anion Gap 4.0 mmol/L 2-11 42, 49 Glucose 84 mg/dL 70-105 42 BUN 25 mg/dL High 6-24 42 Creatinine 1.1 mg/dL 0.5-1.4 42 One Over Creatinine 0.90 42 BUN/Creatinine Ratio 22.7 High 8-20 42 Calcium 9.3 mg/dL 8.7-10.2 42 Laboratory test finding 09/23/2006 TSH 0.66 MIU/ML 0.34-5.60 50 Lipid Profile 09/23/2006 Cholesterol/HDL 6.11 AVERAGE High 1-4.44 50 (Trig/Chol/HDL) Ratio Cholesterol 232 mg/dL High Less Than 200 50, 51 Triglyceride 140 mg/dL 40-200 50 High Density Lipoprotein 38 mg/dL Low 40-60 50, 52 Low Density Lipoprotein 166 mg/dL High Less Than 100 50, 53 Comp Metabolic Panel 09/23/2006 One Over Creatinine 1.11 50 Anion Gap 7.0 mmol/L 2-11 50, 54 Albumin/Globulin Ratio 1.2 1-3 50 Albumin 3.7 GM/DL 3.2-5.2 50 Alkaline Phosphatase 52 U/L 30-110 50 Alt (SGPT) 21 U/L 14-54 50 Ast (Sgot) 26 U/L 12-42 50 BUN 14 mg/dL 6-24 50 Calcium 8.7 mg/dL 8.7-10.2 50 Chloride 107 mmol/L 101-111 50 Co2 (Carbon Dioxide) 29.0 mmol/L 22-32 50 Globulin 3.0 GM/DL 2-4 50 Glucose 93 mg/dL 70-105 50 Potassium 5.1 mmol/L High 3.5-5.0 50 Sodium 143 mmol/L 135-145 50 Bilirubin Total 0.8 mg/dL 0.4-1.5 50 Total Protein 6.7 GM/DL 6.2-8.1 50 BUN/Creatinine Ratio 15.6 8-20 50 Creatinine 0.9 mg/dL 0.5-1.4 50 CBC W/ Electronic Diff 09/23/2006 White Blood Count 4.4 CUMM Low 4.8-10.8 50 Abs Basophils 0 0-0.2 50 Abs Eosinophils 0.1 0-0.6 50 Absolute Neutrophil Count 2.1 1.5-7.7 50 Abs Lymphs 1.7 1.0-4.8 50 Abs Mononuclear 0.5 0-0.8 50 Basophil % 0.7 % 0-2 50 Hematocrit 39 % 35-47 50 Hemoglobin 12.9 g/dL 12.0-16.0 50 Eosinophil % 1.2 % 0-6 50 Gran % 48.0 % 38-83 50 Lymph % 39.6 % 20-45 50 Mean Corpuscular HGB Cone 33 g/dL 32-36 50 Mean Corpuscular Hemoglob 31 pg 27-31 50 Mean Corpuscular Volume 94 um3 79-97 50 Mean Platelet Volume 8.3 um3 7.4-10.4 50 Mononuclear % 10.5 % High 1-9 50 Platelet Count 226 CUMM 150-450 50 Red Cell Count 4.16 CUMM Low 4.2-5.4 50 Redcell Distribution WDTH 13 % 10.5-15 50 1 *Ascorbic acid is present which may interfere with detection of blood. 2 Because ethnic data is not always readily available, this report includes an eGFR for both -Americans and non- Americans. The National Kidney Disease Education Program (NKDEP) does not endorse the use of the MDRD equation for patients that are not between the ages of 18 and 70, are , have extremes of body size, muscle mass, or nutritional status, or are non- or non-. According to the National Kidney Foundation, irrespective of diagnosis, the stage of the disease is based on the level of kidney function: Stage Description GFR(mL/min/1.73 m(2)) 1 Kidney damage with normal or decreased GFR 90 2 Kidney damage with mild decrease in GFR 60-89 3 Moderate decrease in GFR 30-59 4 Severe decrease in GFR 15-29 5 Kidney failure <15 (or dialysis) 3 Normal Range 180 to 914 Indeterminate Range 145 to 180 Deficient Range <145 4 Desirable <150 Borderline high 150-199 High 200-499 Very High >500 5 Desirable <200 Borderline high 200-239 High >239 6 Low <40 Desirable: 40-60 High: >60 7 Desirable: <100 mg/dL Near Optimal: 100-129 mg/dL Borderline High: 130-159 mg/dL High: 160-189 mg/dL Very High: >189 mg/dL 8 Because ethnic data is not always readily available, this report includes an eGFR for both -Americans and non- Americans. The National Kidney Disease Education Program (NKDEP) does not endorse the use of the MDRD equation for patients that are not between the ages of 18 and 70, are , have extremes of body size, muscle mass, or nutritional status, or are non- or non-. According to the National Kidney Foundation, irrespective of diagnosis, the stage of the disease is based on the level of kidney function: Stage Description GFR(mL/min/1.73 m(2)) 1 Kidney damage with normal or decreased GFR 90 2 Kidney damage with mild decrease in GFR 60-89 3 Moderate decrease in GFR 30-59 4 Severe decrease in GFR 15-29 5 Kidney failure <15 (or dialysis) 9 PT IS FASTING 10 Desirable <150 Borderline high 150-199 High 200-499 Very High >500 11 Desirable <200 Borderline high 200-239 High >239 12 Low <40 Desirable: 40-60 High: >60 13 Desirable: <100 mg/dL Near Optimal: 100-129 mg/dL Borderline High: 130-159 mg/dL High: 160-189 mg/dL Very High: >189 mg/dL 14 Because ethnic data is not always readily available, this report includes an eGFR for both -Americans and non- Americans. The National Kidney Disease Education Program (NKDEP) does not endorse the use of the MDRD equation for patients that are not between the ages of 18 and 70, are , have extremes of body size, muscle mass, or nutritional status, or are non- or non-. According to the National Kidney Foundation, irrespective of diagnosis, the stage of the disease is based on the level of kidney function: Stage Description GFR(mL/min/1.73 m(2)) 1 Kidney damage with normal or decreased GFR 90 2 Kidney damage with mild decrease in GFR 60-89 3 Moderate decrease in GFR 30-59 4 Severe decrease in GFR 15-29 5 Kidney failure <15 (or dialysis) 15 FASTING 16 Because ethnic data is not always readily available, this report includes an eGFR for both -Americans and non- Americans. The National Kidney Disease Education Program (NKDEP) does not endorse the use of the MDRD equation for patients that are not between the ages of 18 and 70, are , have extremes of body size, muscle mass, or nutritional status, or are non- or non-. According to the National Kidney Foundation, irrespective of diagnosis, the stage of the disease is based on the level of kidney function: Stage Description GFR(mL/min/1.73 m(2)) 1 Kidney damage with normal or decreased GFR 90 2 Kidney damage with mild decrease in GFR 60-89 3 Moderate decrease in GFR 30-59 4 Severe decrease in GFR 15-29 5 Kidney failure <15 (or dialysis) 17 Desirable <150 Borderline high 150-199 High 200-499 Very High >500 18 Desirable <200 Borderline high 200-239 High >239 19 Low <40 Desirable: 40-60 High: >60 20 Desirable <100 Near Optimal 100-129 Borderline high 130-159 High 160-189 Very High >189 21 Because ethnic data is not always readily available, this report includes an eGFR for both -Americans and non- Americans. The National Kidney Disease Education Program (NKDEP) does not endorse the use of the MDRD equation for patients that are not between the ages of 18 and 70, are , have extremes of body size, muscle mass, or nutritional status, or are non- or non-. According to the National Kidney Foundation, irrespective of diagnosis, the stage of the disease is based on the level of kidney function: Stage Description GFR(mL/min/1.73 m(2)) 1 Kidney damage with normal or decreased GFR 90 2 Kidney damage with mild decrease in GFR 60-89 3 Moderate decrease in GFR 30-59 4 Severe decrease in GFR 15-29 5 Kidney failure <15 (or dialysis) 22 HDL Interpretation: Undesirable: High Risk: Less than 40 MG/DL Desirable: Low Risk: Greater than 60 MG/DL 23 LDL Interpretation: Low Risk Optimal Level: LDL Less than 100 MG/DL Near or Above Optimal: LDL 100-129 MG/DL Borderline High Risk: LDL 130-159 MG/DL High Risk: LDL 160-189 MG/DL Very High Risk: LDL Greater than 189 MG/DL 24 Because ethnic data is not always readily available, this report includes an eGFR for both -Americans and non- Americans. The National Kidney Disease Education Program (NKDEP) does not endorse the use of the MDRD equation for patients that are not between the ages of 18 and 70, are , have extremes of body size, muscle mass, or nutritional status, or are non- or non-. According to the National Kidney Foundation, irrespective of diagnosis, the stage of the disease is based on the level of kidney function: Stage Description GFR(mL/min/1.73 m(2)) 1 Kidney damage with normal or decreased GFR 90 2 Kidney damage with mild decrease in GFR 60-89 3 Moderate decrease in GFR 30-59 4 Severe decrease in GFR 15-29 5 Kidney failure <15 (or dialysis) 25 -- REFERENCE VALUE -- 25-HYDROXY D TOTAL (D2+D3) Optimum levels in the normal population are 25-80 Test Performed by: [facility] Pathology [address] [place] [address] Bullet Lubricating Machine Operator: Chad Delgado III, M.D. 26 NON FASTING 27 Anion gap measurement may be of limited value in the presence of any alkalosis, especially in a combined acid base disorder. . 28 A metabolite of Naproxen, O-desmethylnaproxen, has been shown to interfere with the [place] method for measuring total bilirubin. Samples from patients who have taken Naproxen have shown spurious elevation in total bilirubin levels. 29 Because ethnic data is not always readily available, this report includes an eGFR for both -Americans and non- Americans. The National Kidney Disease Education Program (NKDEP) does not endorse the use of the MDRD equation for patients that are not between the ages of 18 and 70, are , have extremes of body size, muscle mass, or nutritional status, or are non- or non-. According to the National Kidney Foundation, irrespective of diagnosis, the stage of the disease is based on the level of kidney function: Stage Description GFR(mL/min/1.73 m(2)) 1 Kidney damage with normal or decreased GFR 90 2 Kidney damage with mild decrease in GFR 60-89 3 Moderate decrease in GFR 30-59 4 Severe decrease in GFR 15-29 5 Kidney failure <15 (or dialysis) 30 CHOLESTEROL INTERPRETATION: Desirable: Less than 200 MG/DL Borderline-High Risk: 200-239 MG/DL High-Risk: 240 MG/DL and over 31 HDL INTERPRETATION: Undesirable: High Risk: Less than 40 MG/DL Desirable: Low Risk: Greater than 60 MG/DL 32 LDL INTERPRETATION: Low Risk Optimal Level: LDL Less than 100 MG/DL Near or Above Optimal: LDL 100-129 MG/DL Borderline High Risk: LDL 130-159 MG/DL High Risk: LDL 160-189 MG/DL Very High Risk: LDL Greater than 189 MG/DL 33 >100^>100,000 ORGANISMS/ML (MANY)^CCU 34 Anion gap measurement may be of limited value in the presence of any alkalosis, especially in a combined acid base disorder. . 35 Note change in reference range as of 10/09/07. The change was based on recommendations from the [place] [employer]. 36 Please note change in reference range effective 07 . 37 A metabolite of Naproxen, O-desmethylnaproxen, has been shown to interfere with the Jendrass[place] method for measuring total bilirubin. Samples from patients who have taken Naproxen have shown spurious elevation in total bilirubin levels. 38 Because ethnic data is not always readily available, this report includes an eGFR for both -Americans and non- Americans. The National Kidney Disease Education Program (NKDEP) does not endorse the use of the MDRD equation for patients that are not between the ages of 18 and 70, are , have extremes of body size, muscle mass, or nutritional status, or are non- or non-. According to the National Kidney Foundation, irrespective of diagnosis, the stage of the disease is based on the level of kidney function: Stage Description GFR(mL/min/1.73 m(2)) 1 Kidney damage with normal or decreased GFR 90 2 Kidney damage with mild decrease in GFR 60-89 3 Moderate decrease in GFR 30-59 4 Severe decrease in GFR 15-29 5 Kidney failure <15 (or dialysis) 39 CHOLESTEROL INTERPRETATION: Desirable: Less than 200 MG/DL Borderline-High Risk: 200-239 MG/DL High-Risk: 240 MG/DL and over 40 HDL INTERPRETATION: Undesirable: High Risk: Less than 40 MG/DL Desirable: Low Risk: Greater than 60 MG/DL 41 LDL INTERPRETATION: Low Risk Optimal Level: LDL Less than 100 MG/DL Near or Above Optimal: LDL 100-129 MG/DL Borderline High Risk: LDL 130-159 MG/DL High Risk: LDL 160-189 MG/DL Very High Risk: LDL Greater than 189 MG/DL 42 PATIENT MAY HAVE RESULTS PER DOCTOR'S AUTHORIZATION. Questions regarding this report should be directed to your doctor. 43 Anion gap measurement may be of limited value in the presence of any alkalosis, especially in a combined acid base disorder. . 44 Note change in reference range as of 10/09/07. The change was based on recommendations from the [place] [employer]. 45 Please note change in reference range effective 07 . 46 CHOLESTEROL INTERPRETATION: Desirable: Less than 200 MG/DL Borderline-High Risk: 200-239 MG/DL High-Risk: 240 MG/DL and over 47 HDL INTERPRETATION: Undesirable: High Risk: Less than 40 MG/DL Desirable: Low Risk: Greater than 60 MG/DL 48 LDL INTERPRETATION: Low Risk Optimal Level: LDL Less than 100 MG/DL Near or Above Optimal: LDL 100-129 MG/DL Borderline High Risk: LDL 130-159 MG/DL High Risk: LDL 160-189 MG/DL Very High Risk: LDL Greater than 189 MG/DL 49 Anion gap measurement may be of limited value in the presence of any alkalosis, especially in a combined acid base disorder. . 50 FASTING 51 Classification: Borderline High . 52 Classification: Low . 53 CALCULATED LDL APPROXIMATES THE VALUE OF A DIRECT LDL MEASUREMENT. Classification: High . 54 Anion gap measurement may be of limited value in the presence of any alkalosis, especially in a combined acid base disorder. . Procedures Date CPT Code Description Status Comment 05/14/2016 Bone Mineral Density Test Completed 07/28/2013 66129 Carpal Tunnel Release Completed 06/19/2013 56079 Nerve Conduction 03-04 Studies Completed 01/19/2013 Bone Mineral Density Test Completed 12/26/2010 Bone Mineral Density Test Completed 11/14/2010 Mammogram Completed 09/07/2009 Diabetic Retinal Eye Exam Completed Document: 09/07/09 - Con Ophthalmology-DR.Schwart celis 10/05/2008 Colonoscopy Completed 01/19/2008 13186 EKG Tracing & Completed Interpretation 09/30/2006 15619 EKG Tracing & Completed Interpretation 09/30/2006 82209 EKG Tracing & Completed Interpretation 06/19/2002 41056 Color Doppler Completed 06/19/2002 09592 Pulse Doppler & Continuous Completed Wave 06/19/2002 23473 Echocardiogram Completed Encounters Type Date Location Provider CPT E/M Dx Office Visit 12/21/2016 [facility] Celso Scales, 94954 G31.84 9:00a - Christiane Locke Office Visit 06/15/2016 [facility] Celso Scales 06575 G31.84 10:40a - Christiane Locke Office Visit 05/21/2016 [facility] Celso Scales 36074 G31.84 3:40p - Christiane Locke E78.00 Office Visit 04/20/2016 11:00a [facility] Celso Scales 14991 Z00.00 - Christiane Locke M85.9 E78.00 R41.81 Z00.01 Z23 Office Visit 10/29/2014 10:40a [facility] Celso Scales, 03447 784.0 - Nimisha Locke Office Visit 10/22/2014 10:20a [facility] Celso Scales, 95897 401.1 - Nimisha Locke 780.93 Office Visit 09/07/2013 11:00a [facility] Celso Scales 98006 401.1 - Nimisha Locke 272.0 Office Visit 07/09/2013 10:45a [facility], 36578 354.0 C.M.Amanda Locke Office Visit 09/04/2012 2:00p [facility] Celso Scales, 67737 401.1 - Nimisha Locke 272.0 733.90 Office Visit 07/11/2012 11:40a [facility] Celso Scales, 12906 692.6 - Nimisha Locke Office Visit 03/12/2012 3:00p [facility] Celso Scales 86645 401.1 - Nimisha Locke Office Visit 12/18/2010 1:00p DO Not Use [facility], 86639 V70.0 [facility] 401.1 272.0 733.90 564.00 V04.81 Office Visit 01/24/2010 4:20p DO Not Use Cardiology Fellow At [facility], 29724 784.0 [facility].DGisell Office Visit 01/03/2010 11:00a DO Not Use [facility], 04402 V04.81 [facility] 401.1 272.0 733.90 564.00 Office Visit 11/01/2009 2:40p DO Not Use [facility], 94457 V72.81 [facility] 401.1 272.0 733.90 782.1 Office Visit 10/31/2009 11:40a DO Not Use [facility], 95675 782.1 [facility].DGisell Office Visit 06/29/2009 9:00a DO Not Use Cardiology Fellow [facility], 33607 401.1 [facility] 272.2 733.90 Office Visit 01/17/2009 9:30a DO Not Use [facility], 56198 401.1 [facility] 733.90 272.0 Office Visit 07/19/2008 10:00a [facility], 77078 569.3 [facility].D. 272.0 401.1 Office Visit 01/19/2008 9:00a [facility], 23145 272.0 [facility].D. 733.90 401.1 Office Visit 07/17/2007 10:00a [facility], 11244 401.1 [facility].D. Office Visit 06/12/2007 10:45a [facility], 84678 943.21 [facility].D. 401.1 Office Visit 05/29/2007 2:45p [facility], 51354 454.1 [facility] M.D. 796.2 Office Visit 02/03/2007 1:45p [facility] Celso Scales, 60672 595.0 [facility] M.D. 454.9 Office Visit 09/30/2006 9:00a [facility] Celso Scales, 23437 796.2 [facility] M.D. 272.0 733.00 Plan of Care Future Appointment(s):06/20/2017 9:20 am - Celso Scales M.D. at [facility] - Ysrvgcbyf16/11/2018 - Celso Scales M.D.G31.84 Mild cognitive impairment, so statedComments:New c/o vague head discomfort/"pressure " sx, unsteady feelings, ? noted over the same time frame as starting her Namenda XR and titrating the dose up. No c/o noted previously on just the Aricept. ER evals, labs, brain CT all stable. Advised stopping the Namenda and observing for any changes.
[2017-03-03 12:57] LABS: ABS Basophils 0.1 10^3/ul (0-0.2); ABS Eosinophils 0 10^3/ul (0-0.6); ABS Lymphocytes 1.4 10^3/ul (1.0-4.8); ABS Monocytes 0.4 10^3/ul (0-0.8); ABS Nucleated RBC 0 10^3/ul; Eosinophil % 0.8 % (0-6); Hematocrit 38 % (35-47); Hemoglobin 12.7 g/dl (12.0-16.0); Lymphocyte % 23.6 % (25-47); Mean Corpuscular HGB Conc 33 g/dl (31-36); Mean Corpuscular Hemoglobin 31 pg (27-31); Mean Corpuscular Volume 93 fL (80-97); Mean Platelet Volume 8 um3 (7.4-10.4); Nucleated Red Blood Cells % 0; Platelet Count 244 10^3/ul (150-450); Red Cell Distribution Width 13 % (10.5-15); White Blood Count 5.8 10^3/ul (3.5-10.8)
[2017-03-03 13:10] LABS: INR 0.9 (0.77-1.02)
[2017-03-03 13:14] LABS: EGFR Non-African American 52.8 (>60)
--- NOTE | 2017-03-03 13:52 | RAD ---
Indication: Headaches and hypertension. CT of the brain was performed without IV contrast. Ventricular structures are midline. No midline shift is noted. The extra-axial spaces are unremarkable. There is no evidence of intracranial mass or hemorrhage. No other high or low density lesions are identified. Periventricular lucency consistent with chronic ischemic white matter changes noted. When compared to previous exam of February 27, 2017 no significant changes noted. IMPRESSION: Chronic ischemic White matter change. No intracranial mass or hemorrhage is noted.
--- NOTE | 2017-03-03 14:25 | RAD ---
Indication: Headaches, hypertension. Single frontal view of the chest performed at 1325 hours was reviewed. Comparison is made with previous exam dated February 27, 2017. No mediastinal shift is noted. Heart is mildly enlarged. The Lung fuentes appear clear. No significant change is noted since prior exam.. IMPRESSION: MILD CARDIOMEGALY WITHOUT EVIDENCE OF PNEUMONIA.
[2017-03-03 14:48] LABS: Urine Appearance Cloudy; Urine Blood Negative (Negative); Urine Color Yellow; Urine Ketones Negative (Negative); Urine Protein Negative (Negative); Urine Specific Gravity 1.005 (1.010-1.030); Urine Urobilinogen Negative (Negative)
[2017-03-03 14:58] VITALS: BP 130/64
--- NOTE | 2017-03-04 03:07 | ED ---
Christopher Gibson Julia, scribed for Negrita Gardiner MD on 03/03/17 at 1308 . Headache - HPI Summary HPI Summary: This patient is a 89 year old F BIBA to [facility] accompanied by partner of 30 years with a chief complaint of an intermittent pressure like headache that is just there for the past few weeks. EMS reports patient was sinus on monitor, had a blood glucose of 125, her BP was 226/120, with a headache, and nausea. Patient denies CP, SOB, weakness, no trauma, and abdominal pain. Current BP is 135/67 with sinus rhythm at 61 BPM, and O2 saturation of 97% on room air. Partner reports usual dizziness in mornings. The patient rates the pain 5/10 in severity currently, but is worse some days. Symptoms aggravated by nothing. Symptoms alleviated by nothing. Patient is not medicated for HTN, is currently taking Aricept, and is no longer taking Namenda. Patient is seeing Dr. Scales every 6 months for a checkup. - History Of Current Complaint Chief Complaint: EDHeadache Stated Complaint: HEADACHE,ABD PAIN Time Seen by Provider: 03/03/17 12:17 Hx Obtained From: Patient Onset/Duration: Started weeks ago Currently Pain Is: Current Pain Scale(0-10)= - 5, worse at other times Timing: Intermittent, Lasting: - waxing and waning Character: Pressure Aggravating Factor: Nothing Allevating Factors: Nothing Associated Signs And Symptoms: Dizziness, Nausea, Other (Noted In Comments) - Allergies/Home Medications Allergies/Adverse Reactions: Allergies Allergy/AdvReac Type Severity Reaction Status Date / Time Sulfa Antibiotics Allergy Intermediate Rash Verified 04/26/16 09:05 PMH/Surg Hx/FS Hx/Imm Hx Endocrine/Hematology History: Denies: Hx Diabetes Cardiovascular History: Denies: Hx Hypertension, Hx Pacemaker/ICD GI History: Denies: Other GI Disorders Musculoskeletal History: Reports: Hx Osteoporosis Sensory History: Reports: Hx Contacts or Glasses - GLASSES, Hx Hearing Aid Opthamlomology History: Reports: Hx Contacts or Glasses - GLASSES Neurological History: Reports: Other Neuro Impairments/Disorders - poor memory treated with medication Psychiatric History: Denies: Hx Panic Disorder - Surgical History Surgery Procedure, Year, and Place[place] [place] [place] LEG FRACTURE-METAL PLATE [id number]. RIGHT WRIST CARPAL TUNNEL 12/01 Hx Anesthesia Reactions: No - Immunization History Date of Influenza Vaccine: 10/2016 Infectious Disease History: No Infectious Disease History: Denies: History Other Infectious Disease, Traveled Outside the [place] in Last 30 Days - Family History Known Family History: Negative: Cardiac Disease, Diabetes, Other - [place] - Social History Alcohol Use: Rare Alcohol Amount: ONE DRINK A MONTH Hx Substance Use: No Substance Use Type: Reports: None Hx Tobacco Use: No Smoking Status (MU): Never Smoked Tobacco Review of Systems Negative: Chest Pain Negative: Shortness Of Breath Positive: Nausea Neurological: Other - dizziness Positive: Headache All Other Systems Reviewed And Are Negative: Yes Physical Exam - Summary Physical Exam Summary: Appearance: Ill-appearing, moderate pain distress, Well-nourished Skin: Warm, color reflects adequate perfusion Head: Normal Head/Face inspection Eyes: Conjunctiva clear ENT: Normal inspection Neck: Supple, no nodes, no JVD. Respiratory: Lungs clear, Normal breath sounds, no respiratory distress Cardio: RRR, No murmur, pulses normal, brisk capillary refill Abdomen: soft, nontender Bowel sounds: present Musculoskeletal: Strength Intact/ ROM intact. No calf tenderness. No edema. Ecchymosis to bilateral antecubital upper extremities. Neuro: Alert, muscle tone normal, facial symmetry, speech normal, sensory/motor intact Psychological: Normal Triage Information Reviewed: Yes Vital Signs On Initial Exam: Initial Vitals Temp Pulse Resp BP Pulse Ox 98.5 F 67 16 135/59 96 03/03/17 12:07 03/03/17 12:07 03/03/17 12:07 03/03/17 12:07 03/03/17 12:07 Vital Signs Reviewed: Yes - Railroad Coma Scale Coma Scale Total: 15 Diagnostics - Vital Signs Vital Signs Temp Pulse Resp BP Pulse Ox 03/03/17 12:30 62 132/64 96 03/03/17 12:08 72 135/59 96 03/03/17 12:07 98.5 F 76 16 135/59 95 - Laboratory Lab Results: Lab Results 03/03/17 Range/Units 12:50 WBC 5.8 (3.5-10.8) 10^3/ul RBC 4.10 (4.0-5.4) 10^6/ul Hgb 12.7 (12.0-16.0) g/dl Hct 38 (35-47) % MCV 93 (80-97) fL MCH 31 (27-31) pg MCHC 33 (31-36) g/dl RDW 13 (10.5-15) % Plt Count 244 (150-450) 10^3/ul MPV 8 (7.4-10.4) um3 Neut % (Auto) 68.3 (38-83) % Lymph % (Auto) 23.6 L (25-47) % Park % (Auto) 6.1 (1-9) % Eos % (Auto) 0.8 (0-6) % Baso % (Auto) 1.2 (0-2) % Absolute Neuts (auto) 4.0 (1.5-7.7) 10^3/ul Absolute Lymphs (auto) 1.4 (1.0-4.8) 10^3/ul Absolute Monos (auto) 0.4 (0-0.8) 10^3/ul Absolute Eos (auto) 0 (0-0.6) 10^3/ul Absolute Basos (auto) 0.1 (0-0.2) 10^3/ul Absolute Nucleated RBC 0 10^3/ul Nucleated RBC % 0 Result Diagrams: 03/03/17 12:50 03/03/17 12:50 Lab Statement: Any lab studies that have been ordered have been reviewed, and results considered in the medical decision making process. - Radiology CXR Radiology Interpretation Completed By: Radiologist - MILD CARDIOMEGALY WITHOUT EVIDENCE OF PNEUMONIA. ED Physician has reviewed this report. - CT Brain CT Interpretation Completed By: Radiologist - Chronic ischemic White matter change. No intracranial mass or hemorrhage is noted. ED Physician has reviewed this report. - EKG 12:46 Cardiac Rate: Bradycardia EKG Rhythm: Sinus Bradycardia - at [address] Segment: Non-Specific Ectopy: None EKG Interpretation: nl AVIVCT nml QTc L axis (-34) EKG Comparison: No Significant Change - 02/27/17 Re-Evaluation - Re-Evaluation 1st Re-Evaluation Time: 14:40 Change: Improved - headache is resolved, patient is ambulatory Headache Course/Dx - Course Course Of Treatment: Patient presented with headache and HTN 226/120. Headache resolved during course of treatment. Medical records from 02/24/17 and 02/27/17 were reviewed, revealing a BP of 156/103. Patient should follow up with primary care to address HTN. However, there is concern that patient will be unable to adhere to HTN medication with worsening memory. - Diagnoses Provider Diagnoses: Headache, Hypertension Discharge - Discharge Plan Condition: Stable Disposition: HOME Patient Education Materials: Hypertension (ED), General Headache (ED) Referrals: Celso Scales MD [Primary Care Provider] - 3 Days Additional Instructions: Your blood pressure was very elevated in the ambulance. We think that your fluctuating blood pressures are contributing to your headaches.\ Your CT brain and blood work did not show a stroke or any emergency condition. Return to the ER if you have any new or worsening symptoms. The documentation as recorded by the Christopher ramirez Julia accurately reflects the service I personally performed and the decisions made by , Negrita Gardiner MD.
== END | disposition home or self-care (01) ==
LOC: ED 12:00
DX: R51 Headache (principal); I10 Essential (primary) hypertension; R11.0 Nausea; R42 Dizziness and giddiness
CPT/HCPCS: 36415; 70450; 71045; 80053; 81003; 82550; 82553; 83605; 83880; 84436; 84443; 84484; 85025; 85610; 85730; 93005; 99282; A9270-GY